=== PATIENT | male | born 1940 | race African-American/Black ===

== ENCOUNTER 2017-02-09 00:35 | Emergency (ER) | payer MEDICARE, OTHER ==
[~2017-02-09] VITALS: Ht 182.9 cm; Wt 95.3 kg
[~2017-02-09 00:35] MED LIST: LYRICA75 M1 ORAL; NORCO 5-325 TA1 EACH ORAL; TAMSULOSIN HCL0.4 MG ORAL; TRAMADOL HCL50 MG ORAL
[2017-02-09] MEDS ORDERED: Acetaminophen 500mg (ES) tab ORAL ONE (02:00)
[2017-02-09] MEDS ORDERED: Dexamethasone 4mg/ml vial IM ONE (02:00)
[2017-02-09] MEDS ORDERED: AMOXICILLIN500 MG ORAL (02:01)
[2017-02-09 02:16] VITALS: BP 141/80
--- NOTE | 2017-02-09 03:55 | Emergency Room Report ---
History of Present Illness General Chief Complaint: Sore Throat Source: Patient Present Illness HPI 76-year-old male, history of hypertension, presenting with sore throat and difficulty swallowing for 2 days. States that he has been able to drink liquids but not solids. No fever no chills. No sick contacts Allergies: Coded Allergies: No Known Allergies (Verified , 07/15/09) Patient History Past Medical History: see triage record Past Surgical History: none Pertinent Family History: none Reviewed Nursing Documentation: PMH: Agreed, PSxH: Agreed Nursing Documentation-PMH Past Medical History: No History, Except For Hx Hypertension: Yes Review of Systems All Other Systems: negative except mentioned in HPI Physical Exam Vital Signs Date Time Temp Pulse Resp B/P (MAP) Pulse Ox O2 Delivery O2 Flow Rate FiO2 02/09/17 01:02 97.9 56 16 141/80 97 Sp02 EP Interpretation: reviewed, normal General Appearance: normal inspection, well appearing, no apparent distress, alert, GCS 15, non-toxic Head: normocephalic, atraumatic Eyes: bilateral eye normal inspection, bilateral eye PERRL, bilateral eye EOMI ENT: other - Bilateral tonsillar erythema, edema, exudates, no signs of CREDIT VERIFICATION CLERK Neck: normal inspection, full range of motion, supple Respiratory: normal inspection, lungs clear, normal breath sounds, no respiratory distress, no retraction, no wheezing, speaking full sentences, chest symmetrical Cardiovascular #1: normal inspection, regular rate, rhythm, normal capillary refill Cardiovascular #2: 2+ radial (R), 2+ radial (L) Gastrointestinal: normal inspection, non tender, soft, non-distended, no guarding Genitourinary: no CVA tenderness Musculoskeletal: normal inspection, back normal, normal range of motion, non- tender Neurologic: normal inspection, alert, oriented x3, responsive, motor strength/ tone normal, sensory intact, normal gait, speech normal Psychiatric: normal inspection, judgement/insight normal, memory normal Skin: normal inspection, normal color, no rash, warm/dry, well hydrated, normal turgor Medical Decision Making Diagnostic Impression: Primary Impression: Acute bacterial pharyngitis ER Course 76-year-old male with sore throat DDX: Viral vs. infectious mononucleosis vs. bacterial pharyngitis vs. allergies Other serious causes such as CREDIT VERIFICATION CLERK / RPA / deep space neck infection unlikely given the benign physical exam Plan: decadron, supportive care. Abx ER course: Patient remains stable in ED. Decadron given to patient. Disposition: Patient will be discharged to home with a prescription of amoxicillin. Patient will follow up with primary care doctor within 5 days. Strict return precautions discussed with patient such as worsening throat pain/swelling, dysphagia, high fever or chills, shortness of breath, abdominal pain, which may indicate severe illness. Patient verbalized understanding and agreed with plan. Please note that this Emergency Department Report was dictated using [employer] resource engineer technology software, occasionally this can lead to erroneous entry secondary to interpretation by the dictation equipment. Last Vital Signs Date Time Temp Pulse Resp B/P (MAP) Pulse Ox O2 Delivery O2 Flow Rate FiO2 02/09/17 02:16 97.9 88 16 141/80 97 Disposition: HOME, SELF-CARE Condition: Improved Scripts Amoxicillin* (AMOXIL*) 500 Mg Capsule 500 MG ORAL THREE TIMES A DAY for 7 Days, #21 CAP 0 Refills Prov: Liliana Cai M.D. 02/09/17 Referrals: [facility]ERR[facility] (PCP) Patient Instructions: Pharyngitis, [id number] Liliana Cai M.D. Feb 09, 2017 03:55
== END 2017-02-09 02:16 | disposition home or self-care (01) ==
LOC: EMR 02:10
DX: J02.8 Acute pharyngitis due to other specified organisms (principal); B96.89 Other specified bacterial agents as the cause of diseases classified elsewhere; R13.10 Dysphagia, unspecified; I10 Essential (primary) hypertension
CPT/HCPCS: 96372; 99283; J1100

== ENCOUNTER 2017-04-19 22:34 | Emergency (ER) | payer MEDICARE, OTHER ==
[~2017-04-19] VITALS: Ht 182.9 cm; Wt 94.3 kg
[~2017-04-19 22:34] MED LIST changes: +AMOXICILLIN500 MG ORAL
[2017-04-19 23:30] VITALS: BP 162/90
[2017-04-20 00:18] LABS: BASOPHILS % (AUTO) 2.2 % (0.0-2.0); EOSINOPHILS % (AUTO) 0.2 % (0.0-3.0); HEMATOCRIT 43.5 % (42.0-52.0); HEMOGLOBIN 14.7 G/DL (14.2-18.0); LYMPHOCYTES % (AUTO) 29.9 % (20.0-45.0); MEAN CORPUSCULAR VOLUME 79 FL (80-99); MONOCYTES % (AUTO) 12.4 % (1.0-10.0); NEUTROPHILS % (AUTO) 55.2 % (45.0-75.0); PLATELET COUNT 163 K/UL (150-450); RED BLOOD COUNT 5.49 M/UL (4.70-6.10); RED CELL DISTRIBUTION WIDTH 13.7 % (11.6-14.8)
[2017-04-20 00:23] LABS: BILIRUBIN, URINE NEGATIVE (NEGATIVE); COLOR,URINE PALE YELLOW; GLUCOSE, URINE (UA) NEGATIVE (NEGATIVE); KETONES,URINE NEGATIVE (NEGATIVE); PH,URINE 5 (4.5-8.0); PROTEIN,URINE 3+ (NEGATIVE); UROBILINOGEN,URINE NORMAL MG/DL (0.0-1.0)
[2017-04-20 00:31] LABS: APPEARANCE,URINE CLOUDY; LEUKOCYTE ESTERASE ,URINE 2+ (NEGATIVE); NITRITE,URINE POSITIVE (NEGATIVE)
[2017-04-20 00:32] LABS: ANION GAP 10 mmol/L (5-15); BLOOD UREA NITROGEN 27 mg/dL (7-18); CALCIUM 8.8 MG/DL (8.5-10.1); CARBON DIOXIDE 25 MMOL/L (21-32); CHLORIDE 104 MMOL/L (98-107); CREATININE 2.3 MG/DL (0.55-1.30); POTASSIUM 4.7 MMOL/L (3.5-5.1); SODIUM 139 MMOL/L (136-145)
[2017-04-20 00:37] LABS: ALANINE AMINOTRANSFERASE 32 U/L (12-78); ALBUMIN 3.4 G/DL (3.4-5.0); ALBUMIN/GLOBULIN RATIO 0.7 (1.0-2.7); ALKALINE PHOSPHATASE 91 U/L (46-116); ASPARTATE AMINO TRANSFERASE 48 U/L (15-37); BILIRUBIN,TOTAL 0.5 MG/DL (0.2-1.0)
[2017-04-20] MEDS ORDERED: cefTRIAXone 1 GM in NS 55 ML IVPB ONE (00:45)
[2017-04-20] MEDS ORDERED: Acetaminophen 500mg (ES) tab ORAL ONE (00:45)
[2017-04-20] MEDS ORDERED: KEFLEX500 MG ORAL (01:17)
[2017-04-20] MEDS ORDERED: HYDROCODON-ACE1 EA16 ORAL (01:17)
--- NOTE | 2017-04-20 01:18 | Emergency Room Report ---
History of Present Illness General Chief Complaint: Abdominal Pain Source: Patient Present Illness HPI Is a 76-year-old male who is [facility]. He has multiple medical problem. He presents with chief complaint of lower abdominal pain has been ongoing for the last 3 or 4 days. No nausea no vomiting. No fever chills. Decreased appetite. Just has generalized malaise. No other complaints. Denies any urinary frequency, urgency or hematuria. Allergies: Coded Allergies: No Known Allergies (Verified , 07/15/09) Patient History Past Medical History: see triage record, old chart reviewed Past Surgical History: other Pertinent Family History: none Social History: Denies: smoking Immunizations: other Reviewed Nursing Documentation: PMH: Agreed, PSxH: Agreed Nursing Documentation-PMH Hx Hypertension: Yes Review of Systems Constitutional: Reports: malaise, weakness Eye: Denies: eye pain, blurred vision ENT: Denies: ear pain, nose congestion, throat swelling Respiratory: Denies: cough, shortness of breath Cardiovascular: Denies: chest pain, palpitations Gastrointestinal: Reports: abdominal pain, Denies: diarrhea, nausea, vomiting Musculoskeletal: Denies: back pain, joint pain Skin: Denies: rash Neurological: Denies: headache, numbness Endocrine: Denies: increased thirst, increased urine Hematologic/Lymphatic: Denies: easy bruising All Other Systems: negative except mentioned in HPI Physical Exam Vital Signs Date Time Temp Pulse Resp B/P (MAP) Pulse Ox O2 Delivery O2 Flow Rate FiO2 04/19/17 23:02 99.2 77 18 162/90 99 Room Air 99.1 vitals with high blood pressure Sp02 EP Interpretation: reviewed, normal General Appearance: well appearing, no apparent distress, alert Head: normocephalic, atraumatic Eyes: bilateral eye PERRL, bilateral eye EOMI ENT: hearing grossly normal, normal pharynx Neck: full range of motion, supple, no meningismus Respiratory: chest non-tender, lungs clear, normal breath sounds Cardiovascular #1: regular rate, rhythm, no murmur Gastrointestinal: normal bowel sounds, no mass, no organomegaly, no bruit, non- distended, tenderness - Suprapubic and umbilical Musculoskeletal: back normal, gait/station normal, normal range of motion Psychiatric: mood/affect normal Skin: warm/dry Medical Decision Making Diagnostic Impression: Primary Impression: Abdominal pain of unknown etiology Additional Impressions: UTI (urinary tract infection) Qualified Codes: N30.00 - Acute cystitis without hematuria CKD (chronic kidney disease) Qualified Codes: N18.9 - Chronic kidney disease, unspecified Proteinuria Qualified Codes: R80.9 - Proteinuria, unspecified Hypertension Qualified Codes: I10 - Essential (primary) hypertension ER Course Patient with abdominal pain. CT scan unremarkable. No evidence of an acute abdomen. No evidence of dissection. We will discharge home with antibiotic treatment for UTI. Lab Results Impression labs with elevated creatine CT/MRI/US Diagnostic Results CT/MRI/US Diagnostic Results : Imaging Test Ordered: CT abdomen and pelvis Impression Read by radiologist. No evidence of hydronephrosis. Noted to have ureteral stone. Gallstone without evidence of cholecystitis. Appendix unremarkable. Last Vital Signs Date Time Temp Pulse Resp B/P (MAP) Pulse Ox O2 Delivery O2 Flow Rate FiO2 04/19/17 23:02 99.2 77 18 162/90 99 Room Air 99.1 Status: improved Disposition: HOME, SELF-CARE Condition: Stable Scripts Hydrocodone/Acetaminophen 7.5-325* (HYDROCODON-ACETAMINOPH 7.5-325*) 1 Each Tablet 1 TAB ORAL Q6H Y for For Pain, #15 TAB 0 Refills Prov: INES ORTIZ M.D. 04/20/17 Cephalexin* (KEFLEX*) 500 Mg Capsule 500 MG ORAL TID, #21 CAP 0 Refills Prov: INES ORTIZ M.D. 04/20/17 Patient Instructions: Abdominal Pain, Adult Additional Instructions: [facility]5 [facility]. Return if symptoms worsen. INES ORTIZ M.D. Apr 20, 2017 01:18
[2017-04-20 01:25] VITALS: BP 159/88
--- NOTE | 2017-04-20 09:30 | Diagnostic Imaging Report ---
Indication: Abdominal pain Technique: Spiral acquisitions obtained through the abdomen and pelvis. No oral contrast utilized, per emergency room physician request No IV contrast utilized, per referring physician request.. Multiplanar reconstructions were generated. Total dose length product 802.1 mGycm. CTDIvol(s) 15.7 mGy. Dose reduction achieved using automated exposure control Comparison: 08/09/2013 Findings: The appendix is normal. There is colonic diverticulosis. No evidence of diverticulitis. No small bowel distention. No free or loculated intraperitoneal air or fluid is evident. Distal esophagus, stomach, duodenum are unremarkable. Lack of IV contrast limits assessment of the solid organs. Gallstones are again demonstrated. The liver is grossly unremarkable except for a tiny capsular calcification in the dome. No biliary ductal dilatation. The pancreas is atrophic, fatty replaced. The spleen, adrenals are unremarkable. The kidneys are somewhat atrophic bilaterally, slightly more so than on the previous study. No pelvic mass or adenopathy. The prostate is prominent, protrudes into the bladder floor. There is mild bladder wall thickening. 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 Embolization coils are seen within the left internal iliac artery and proximal branches. Patency of the stent graft is indeterminate in the absence of IV contrast The included lung bases are clear except for some areas of linear scarring and small subpleural opacities bilaterally. The bones are unremarkable except for mild degenerative spondylosis changes Impression: No acute abnormality Cholelithiasis Colonic diverticulosis. No evidence of diverticulitis Prostatomegaly. Mild bladder wall thickening could indicate chronic outlet obstruction Aortobiiliac stent graft, patency indeterminate in the absence of IV contrast administration. Bilateral surrounding iliac artery aneurysms are unchanged Mild bilateral renal atrophy. Other findings as noted, including hepatic capsular calcification, pancreatic atrophy, basilar pulmonary parenchymal atelectasis, scarring, and small subpleural opacities, degenerative spondylosis This agrees with the preliminary interpretation provided overnight by [facility] service. The CT scanner at [facility] is accredited by the [employer] and the scans are performed using protocols designed to limit radiation exposure to as low as reasonably achievable to attain images of sufficient resolution adequate for diagnostic evaluation.
== END 2017-04-20 01:25 | disposition home or self-care (01) ==
LOC: EMR 23:20
DX: R10.30 Lower abdominal pain, unspecified (principal); N39.0 Urinary tract infection, site not specified; I12.9 Hypertensive chronic kidney disease with stage 1 through stage 4 chronic kidney disease, or unspecified chronic kidney disease; N18.9 Chronic kidney disease, unspecified; R80.9 Proteinuria, unspecified; K80.20 Calculus of gallbladder without cholecystitis without obstruction; K57.30 Diverticulosis of large intestine without perforation or abscess without bleeding; N40.0 Benign prostatic hyperplasia without lower urinary tract symptoms
CPT/HCPCS: 36415; 74176; 80053; 81003; 83690; 85025; 87086; 87181; 96361; 96365; 99284; J0696